=== PATIENT | female | born 1975 | race Caucasian/White ===

== ENCOUNTER 2017-12-31 16:46 | Inpatient (IN) | payer OTHER ==
[~2017-12-31] VITALS: Ht 170.2 cm; Wt 73.6 kg
[~2017-12-31 16:46] MED LIST: CLEAR EYES REDN30 M1 BOTH EYES; DAILY VITAMIN1 EAC8 PO; ESSENTIAL WOMA1 EAC1 PO; FOLIC ACID1 MG PO; LEVAQUIN750 MG PO; NORCO 5/3251 TABLET PO; PERCOCET 5/31 TABLET PO; PROVERA,CYCRIN10 MG PO; SYNTHROID75 MCG PO; ZOFRAN ODT4 MG PO
[2017-12-31 17:42] LABS: BASOPHIL (%) 0.1 % (0-1); EOSINOPHIL (%) 0.2 % (0-5); HEMATOCRIT 25.5 % (36.0-46.0); HEMOGLOBIN 8.8 G/DL (11.9-15.5); IMMATURE GRANULOCYTE (%) 1.1 % (0.0-0.7); LYMPHOCYTE (%) 10.6 % (15-42); LYMPHOCYTE COUNT 1.5 K/uL (1.0-2.8); MCH 37.9 PG (29.0-34.0); MCHC 34.5 G/DL (30.0-36.0); MCV 109.9 FL (83-99); MONOCYTE (%) 4.7 % (3-12); MONOCYTE COUNT 0.7 K/uL (0-0.8); NEUTROPHIL (%) 83.3 % (45-76); NEUTROPHIL COUNT 11.8 K/uL (1.8-6.4); PLATELET COUNT 167 K/uL (156-360); RBC DIS.WIDTH-CV 18.7 % (11.8-14.6); RBC DIS.WIDTH-SD 74.4 % (39-53); RED BLOOD COUNT 2.32 M/uL (3.80-5.20); WHITE BLOOD COUNT 14.1 K/uL (4.1-10.2)
[2017-12-31 17:48] LABS: INTER. NORMALIZED RATIO 1.8
[2017-12-31 18:11] LABS: ALBUMIN 2.3 G/DL (3.2-4.8); CHLORIDE 82 MEQ/L (99-109); DIRECT BILIRUBIN 5.5 mg/dL (0.0-0.3); POTASSIUM 2.6 MEQ/L (3.7-5.4); SODIUM 124 MEQ/L (136-147)
[2017-12-31 18:21] LABS: QUANTITATIVE HCG < 4.0 MIU/ML
[2017-12-31 18:42] LABS: ALKALINE PHOSPHATASE 486 IU/L (3-129); ALT (GPT) 18 IU/L (3-49); AST (GOT) 94 IU/L (2-34); CREATININE 1.4 MG/DL (0.6-1.3); GFR ESTIMATE (CALCULATED) 44 mL/min/; GLUCOSE 127 mg/dL (70-99); LIPASE 19 U/L (1.0-51.0); SERUM ETHYL ALCOHOL < 10 mg/dL; TOTAL PROTEIN 6.8 G/DL (6.4-8.3); UREA NITROGEN (BUN) 7 mg/dL (9-23)
[2017-12-31 19:32] LABS: MAGNESIUM 1.8 mg/dl (1.3-2.7); PHOSPHORUS 3.5 mg/dL (2.5-4.9)
[2017-12-31] MEDS ORDERED: SYNTHROID125 MCG PO (21:22)
[2017-12-31] MEDS ORDERED: [UNRECOGNIZED DRUG - OTHER] PO (21:22)
[2017-12-31] MEDS ORDERED: OMEPRAZOLE20 MG PO (21:23)
[2017-12-31] MEDS ORDERED: NOVOLOG MI100 UNIT/3 SC ×2 (21:23)
[2017-12-31] MEDS ORDERED: METOCLOPRAMIDE10 MG PO (21:25)
[2017-12-31 23:14] LABS: TYPE OF FLUID PERITONEAL
[2017-12-31 23:28] LABS: APPEARANCE CLEAR-YELLOW; BODY FLUID RBC'S < 1000 /MM^3 (0-100); BODY FLUID WBC'S 55 /MM^3 (0-500)
[2017-12-31 23:39] LABS: HEMATOCRIT 20.6 % (36.0-46.0); HEMOGLOBIN 7.2 G/DL (11.9-15.5); MCH 38.7 PG (29.0-34.0); MCV 110.8 FL (83-99); PLATELET COUNT 136 K/uL (156-360); RBC DIS.WIDTH-CV 18.8 % (11.8-14.6); RBC DIS.WIDTH-SD 75.9 % (39-53); RED BLOOD COUNT 1.86 M/uL (3.80-5.20); WHITE BLOOD COUNT 12.5 K/uL (4.1-10.2)
[2017-12-31 23:58] LABS: BODY FLUID GLUCOSE 95 MG/DL; BODY FLUID LDH 34 IU/L; BODY FLUID PROTEIN < 3.0 G/DL
[2018-01-01 00:15] LABS: BODY FLUID EOSINOPHILS 0 % (0-25); MONONUCLEAR WBC'S 67 %; POLYNUCLEAR WBC'S 33 % (0-25)
[2018-01-01 01:11] VITALS: BP 100/55
[2018-01-01 07:03] LABS: ALBUMIN 2.1 G/DL (3.2-4.8); ALKALINE PHOSPHATASE 381 IU/L (3-129); ALT (GPT) 16 IU/L (3-49); AST (GOT) 81 IU/L (2-34); CHLORIDE 89 MEQ/L (99-109); CREATININE 1.2 MG/DL (0.6-1.3); DIRECT BILIRUBIN 4.7 mg/dL (0.0-0.3); GFR ESTIMATE (CALCULATED) 52 mL/min/; GLUCOSE 96 mg/dL (70-99); MAGNESIUM 1.9 mg/dl (1.3-2.7); PHOSPHORUS 3.3 mg/dL (2.5-4.9); POTASSIUM 2.6 MEQ/L (3.7-5.4); SODIUM 128 MEQ/L (136-147); TOTAL BILIRUBIN 7.2 MG/DL (0.0-1.0); TOTAL PROTEIN 5.8 G/DL (6.4-8.3); UREA NITROGEN (BUN) 7 mg/dL (9-23)
[2018-01-01 07:50] VITALS: BP 91/55
[2018-01-01 10:13] LABS: IRON 27 MCG/DL (35-150)
[2018-01-01 10:46] LABS: FERRITIN 26 NG/ML (10-291)
[2018-01-01 10:54] LABS: FOLIC ACID (FOLATE) 6.1 NG/ML (5.0-22.0)
[2018-01-01 13:44] LABS: BASOPHIL (%) 0.2 % (0-1); EOSINOPHIL (%) 0.1 % (0-5); HEMATOCRIT 25.1 % (36.0-46.0); HEMOGLOBIN 8.4 G/DL (11.9-15.5); IMMATURE GRANULOCYTE (%) 0.8 % (0.0-0.7); LYMPHOCYTE (%) 12.8 % (15-42); LYMPHOCYTE COUNT 1.5 K/uL (1.0-2.8); MCHC 33.5 G/DL (30.0-36.0); MCV 113.6 FL (83-99); MONOCYTE (%) 5.2 % (3-12); MONOCYTE COUNT 0.6 K/uL (0-0.8); NEUTROPHIL (%) 80.9 % (45-76); NEUTROPHIL COUNT 9.3 K/uL (1.8-6.4); PLATELET COUNT 149 K/uL (156-360); RBC DIS.WIDTH-CV 19.2 % (11.8-14.6); RBC DIS.WIDTH-SD 78.3 % (39-53); RED BLOOD COUNT 2.21 M/uL (3.80-5.20); WHITE BLOOD COUNT 11.5 K/uL (4.1-10.2)
[2018-01-01 13:57] VITALS: BP 94/56
[2018-01-01 14:25] LABS: IRON 38 MCG/DL (35-150); TRANSFERRIN (TIBC) 164.1 mg/dL (215-380); TRANSFERRIN SATUR. 23 % (20-55)
[2018-01-01 14:28] LABS: HEPATITIS B SURFACE ANTIGEN Nonreactive; HEPATITIS C ANTIBODY Nonreactive
[2018-01-01 14:29] LABS: ANTI-HEPATITIS A VIRUS (IGM) Nonreactive
[2018-01-01 14:30] LABS: ANTI-HEPATITIS B CORE (IGM) Nonreactive
[2018-01-01 16:33] VITALS: BP 107/55
[2018-01-01 22:48] VITALS: BP 95/54
[2018-01-02 06:04] LABS: HEMATOCRIT 22.5 % (36.0-46.0); HEMOGLOBIN 7.4 G/DL (11.9-15.5); MCH 37.9 PG (29.0-34.0); MCHC 32.9 G/DL (30.0-36.0); MCV 115.4 FL (83-99); PLATELET COUNT 128 K/uL (156-360); RBC DIS.WIDTH-SD 79.6 % (39-53); RED BLOOD COUNT 1.95 M/uL (3.80-5.20); WHITE BLOOD COUNT 9.6 K/uL (4.1-10.2)
[2018-01-02 06:27] LABS: ALBUMIN 2.1 G/DL (3.2-4.8); ALKALINE PHOSPHATASE 376 IU/L (3-129); ALT (GPT) 17 IU/L (3-49); AST (GOT) 86 IU/L (2-34); CHLORIDE 94 MEQ/L (99-109); DIRECT BILIRUBIN 5.1 mg/dL (0.0-0.3); GFR ESTIMATE (CALCULATED) > 59 mL/min/; GLUCOSE 104 mg/dL (70-99); SODIUM 130 MEQ/L (136-147); TOTAL BILIRUBIN 7.7 MG/DL (0.0-1.0); TOTAL PROTEIN 5.8 G/DL (6.4-8.3); UREA NITROGEN (BUN) 6 mg/dL (9-23)
[2018-01-02 06:29] LABS: POTASSIUM 3.4 MEQ/L (3.7-5.4)
[2018-01-02 07:43] VITALS: BP 97/54
[2018-01-02 10:26] LABS: TYPE OF FLUID PARACENTESIS
[2018-01-02 11:09] LABS: BODY FLUID PROTEIN < 3.0 G/DL
[2018-01-02 11:39] LABS: APPEARANCE YELLOW-CLEAR; BODY FLUID RBC'S < 1000 /MM^3 (0-100); BODY FLUID WBC'S 98 /MM^3 (0-500)
[2018-01-02 13:27] LABS: BODY FLUID EOSINOPHILS 0 % (0-25); MONONUCLEAR WBC'S 48 %; POLYNUCLEAR WBC'S 52 % (0-25)
[2018-01-02 16:00] VITALS: BP 94/52
[2018-01-02 19:44] LABS: HEMATOCRIT 23.8 % (36.0-46.0); HEMOGLOBIN 7.8 G/DL (11.9-15.5); MCV 116.1 FL (83-99)
[2018-01-02 20:24] VITALS: BP 100/51
[2018-01-02 23:24] VITALS: BP 87/58
[2018-01-03 00:06] LABS: BODY FLUID PH 8.1 (())
[2018-01-03 00:35] VITALS: BP 92/52
[2018-01-03 06:41] LABS: BASOPHIL (%) 0.1 % (0-1); EOSINOPHIL (%) 0.3 % (0-5); HEMATOCRIT 23.3 % (36.0-46.0); HEMOGLOBIN 7.7 G/DL (11.9-15.5); IMMATURE GRANULOCYTE (%) 0.9 % (0.0-0.7); LYMPHOCYTE (%) 17.4 % (15-42); LYMPHOCYTE COUNT 1.4 K/uL (1.0-2.8); MCH 38.1 PG (29.0-34.0); MCV 115.3 FL (83-99); MONOCYTE (%) 4.9 % (3-12); MONOCYTE COUNT 0.4 K/uL (0-0.8); NEUTROPHIL (%) 76.4 % (45-76); NEUTROPHIL COUNT 5.9 K/uL (1.8-6.4); PLATELET COUNT 129 K/uL (156-360); RBC DIS.WIDTH-CV 18.8 % (11.8-14.6); RBC DIS.WIDTH-SD 79.1 % (39-53); RED BLOOD COUNT 2.02 M/uL (3.80-5.20); WHITE BLOOD COUNT 7.8 K/uL (4.1-10.2)
[2018-01-03 06:47] LABS: INTER. NORMALIZED RATIO 1.7
[2018-01-03 07:02] LABS: ALBUMIN 2.4 G/DL (3.2-4.8); ALKALINE PHOSPHATASE 337 IU/L (3-129); ALT (GPT) 16 IU/L (3-49); AST (GOT) 89 IU/L (2-34); CHLORIDE 94 MEQ/L (99-109); GFR ESTIMATE (CALCULATED) > 59 mL/min/; GLUCOSE 107 mg/dL (70-99); POTASSIUM 3.7 MEQ/L (3.7-5.4); SODIUM 129 MEQ/L (136-147); TOTAL BILIRUBIN 6.7 MG/DL (0.0-1.0); TOTAL PROTEIN 5.7 G/DL (6.4-8.3); UREA NITROGEN (BUN) 6 mg/dL (9-23)
[2018-01-03 07:30] VITALS: BP 87/51
[2018-01-03 15:33] VITALS: BP 83/53
[2018-01-03 20:13] LABS: HEMATOCRIT 23.8 % (36.0-46.0); HEMOGLOBIN 7.7 G/DL (11.9-15.5); MCV 115.5 FL (83-99)
[2018-01-04 03:47] LABS: STOOL OCCULT BLD 1ST SPECIMEN NEGATIVE
[2018-01-04 05:41] LABS: HEMATOCRIT 23.4 % (36.0-46.0); HEMOGLOBIN 7.7 G/DL (11.9-15.5); MCH 37.7 PG (29.0-34.0); MCHC 32.9 G/DL (30.0-36.0); MCV 114.7 FL (83-99); PLATELET COUNT 135 K/uL (156-360); RBC DIS.WIDTH-CV 18.6 % (11.8-14.6); RBC DIS.WIDTH-SD 77.6 % (39-53); RED BLOOD COUNT 2.04 M/uL (3.80-5.20); WHITE BLOOD COUNT 8.4 K/uL (4.1-10.2)
[2018-01-04 06:06] LABS: ALBUMIN 2.3 G/DL (3.2-4.8); ALKALINE PHOSPHATASE 360 IU/L (3-129); ALT (GPT) 17 IU/L (3-49); AST (GOT) 96 IU/L (2-34); CHLORIDE 94 MEQ/L (99-109); GFR ESTIMATE (CALCULATED) > 59 mL/min/; GLUCOSE 130 mg/dL (70-99); POTASSIUM 3.5 MEQ/L (3.7-5.4); SODIUM 131 MEQ/L (136-147); TOTAL BILIRUBIN 7.5 MG/DL (0.0-1.0); TOTAL PROTEIN 5.5 G/DL (6.4-8.3); UREA NITROGEN (BUN) 7 mg/dL (9-23)
[2018-01-04 07:39] VITALS: BP 88/55
[2018-01-04 11:29] VITALS: BP 83/52
[2018-01-04 16:11] VITALS: BP 89/54
[2018-01-04 20:16] LABS: HEMATOCRIT 23.9 % (36.0-46.0); HEMOGLOBIN 8.1 G/DL (11.9-15.5); MCV 113.8 FL (83-99)
[2018-01-04 23:10] VITALS: BP 98/60
[2018-01-05] VITALS (9 sets, daily range): BP systolic 89–106; BP diastolic 48–72
[2018-01-05 06:28] LABS: HEMOGLOBIN 7.1 G/DL (11.9-15.5); MCH 38.6 PG (29.0-34.0); MCHC 33.8 G/DL (30.0-36.0); MCV 114.1 FL (83-99); PLATELET COUNT 141 K/uL (156-360); RBC DIS.WIDTH-CV 19.1 % (11.8-14.6); RBC DIS.WIDTH-SD 78.5 % (39-53); RED BLOOD COUNT 1.84 M/uL (3.80-5.20); WHITE BLOOD COUNT 8.8 K/uL (4.1-10.2)
[2018-01-05 07:02] LABS: ALBUMIN 2.1 G/DL (3.2-4.8); ALKALINE PHOSPHATASE 333 IU/L (3-129); ALT (GPT) 17 IU/L (3-49); AST (GOT) 90 IU/L (2-34); CHLORIDE 97 MEQ/L (99-109); CREATININE 0.9 MG/DL (0.6-1.3); GFR ESTIMATE (CALCULATED) > 59 mL/min/; GLUCOSE 104 mg/dL (70-99); SODIUM 131 MEQ/L (136-147); TOTAL BILIRUBIN 7.6 MG/DL (0.0-1.0); TOTAL PROTEIN 5.2 G/DL (6.4-8.3); UREA NITROGEN (BUN) 7 mg/dL (9-23)
[2018-01-05 08:48] LABS: HEMATOCRIT 25.8 % (36.0-46.0); HEMOGLOBIN 8.4 G/DL (11.9-15.5); MCV 114.7 FL (83-99)
[2018-01-05 18:36] LABS: HEMATOCRIT 25.6 % (36.0-46.0); HEMOGLOBIN 8.6 G/DL (11.9-15.5); MCH 35.7 PG (29.0-34.0); MCHC 33.6 G/DL (30.0-36.0); MCV 106.2 FL (83-99); PLATELET COUNT 155 K/uL (156-360); RBC DIS.WIDTH-CV 22.5 % (11.8-14.6); RED BLOOD COUNT 2.41 M/uL (3.80-5.20); WHITE BLOOD COUNT 10.3 K/uL (4.1-10.2)
[2018-01-06 06:24] LABS: HEMATOCRIT 25.1 % (36.0-46.0); HEMOGLOBIN 8.6 G/DL (11.9-15.5); MCH 35.8 PG (29.0-34.0); MCHC 34.3 G/DL (30.0-36.0); MCV 104.6 FL (83-99); NRBC (%) 0.2 /100 WBC (0-0); PLATELET COUNT 156 K/uL (156-360); RBC DIS.WIDTH-CV 22.9 % (11.8-14.6); RBC DIS.WIDTH-SD 85.1 % (39-53); WHITE BLOOD COUNT 10.4 K/uL (4.1-10.2)
[2018-01-06 06:57] LABS: ALKALINE PHOSPHATASE 330 IU/L (3-129); ALT (GPT) 17 IU/L (3-49); AST (GOT) 90 IU/L (2-34); CHLORIDE 96 MEQ/L (99-109); CREATININE 0.9 MG/DL (0.6-1.3); GFR ESTIMATE (CALCULATED) > 59 mL/min/; GLUCOSE 97 mg/dL (70-99); POTASSIUM 3.7 MEQ/L (3.7-5.4); SODIUM 131 MEQ/L (136-147); TOTAL PROTEIN 5.3 G/DL (6.4-8.3); UREA NITROGEN (BUN) 7 mg/dL (9-23)
[2018-01-06 07:00] LABS: TOTAL BILIRUBIN 9.9 MG/DL (0.0-1.0)
[2018-01-06 07:46] VITALS: BP 98/38
[2018-01-06 09:24] LABS: INTER. NORMALIZED RATIO 1.6
[2018-01-06 09:27] LABS: PTT 35.5 SEC (25-37)
[2018-01-06 16:16] VITALS: BP 106/70
[2018-01-06 20:02] LABS: HEMATOCRIT 26.2 % (36.0-46.0); MCV 105.6 FL (83-99)
[2018-01-06 22:52] VITALS: BP 96/54
[2018-01-07 06:27] LABS: HEMATOCRIT 25.1 % (36.0-46.0); HEMOGLOBIN 8.4 G/DL (11.9-15.5); MCH 35.1 PG (29.0-34.0); MCHC 33.5 G/DL (30.0-36.0); NRBC (%) 0.2 /100 WBC (0-0); PLATELET COUNT 159 K/uL (156-360); RBC DIS.WIDTH-CV 22.2 % (11.8-14.6); RBC DIS.WIDTH-SD 82.4 % (39-53); RED BLOOD COUNT 2.39 M/uL (3.80-5.20); WHITE BLOOD COUNT 9.4 K/uL (4.1-10.2)
[2018-01-07 07:06] LABS: ALBUMIN 2.1 G/DL (3.2-4.8); ALKALINE PHOSPHATASE 329 IU/L (3-129); ALT (GPT) 19 IU/L (3-49); AST (GOT) 86 IU/L (2-34); CHLORIDE 96 MEQ/L (99-109); CREATININE 0.9 MG/DL (0.6-1.3); GFR ESTIMATE (CALCULATED) > 59 mL/min/; GLUCOSE 105 mg/dL (70-99); POTASSIUM 3.4 MEQ/L (3.7-5.4); SODIUM 130 MEQ/L (136-147); TOTAL BILIRUBIN 8.9 MG/DL (0.0-1.0); UREA NITROGEN (BUN) 7 mg/dL (9-23)
[2018-01-07 07:30] VITALS: BP 96/58
[2018-01-07 18:00] VITALS: BP 100/59
[2018-01-07 19:46] LABS: HEMATOCRIT 28.9 % (36.0-46.0); HEMOGLOBIN 9.5 G/DL (11.9-15.5)
[2018-01-08 06:31] LABS: HEMOGLOBIN 9.9 G/DL (11.9-15.5); MCH 36.8 PG (29.0-34.0); MCHC 34.1 G/DL (30.0-36.0); MCV 107.8 FL (83-99); PLATELET COUNT 177 K/uL (156-360); RBC DIS.WIDTH-CV 21.8 % (11.8-14.6); RBC DIS.WIDTH-SD 83.7 % (39-53); RED BLOOD COUNT 2.69 M/uL (3.80-5.20); WHITE BLOOD COUNT 10.6 K/uL (4.1-10.2)
[2018-01-08 06:37] LABS: INTER. NORMALIZED RATIO 1.6
[2018-01-08 06:58] LABS: ALBUMIN 2.3 G/DL (3.2-4.8); ALKALINE PHOSPHATASE 354 IU/L (3-129); ALT (GPT) 21 IU/L (3-49); AST (GOT) 95 IU/L (2-34); CHLORIDE 95 MEQ/L (99-109); GFR ESTIMATE (CALCULATED) > 59 mL/min/; GLUCOSE 114 mg/dL (70-99); SODIUM 131 MEQ/L (136-147); TOTAL BILIRUBIN 9.2 MG/DL (0.0-1.0); TOTAL PROTEIN 6.6 G/DL (6.4-8.3); UREA NITROGEN (BUN) 8 mg/dL (9-23)
[2018-01-08 07:02] LABS: BASOPHIL (%) 0.5 % (0-1); BASOPHIL COUNT 0.1 K/uL (0-0.1); EOSINOPHIL (%) 0.2 % (0-5); IMMATURE GRANULOCYTE (%) 2.5 % (0.0-0.7); LYMPHOCYTE (%) 16.7 % (15-42); LYMPHOCYTE COUNT 1.8 K/uL (1.0-2.8); MONOCYTE (%) 8.9 % (3-12); MONOCYTE COUNT 0.9 K/uL (0-0.8); NEUTROPHIL (%) 71.2 % (45-76); NEUTROPHIL COUNT 7.6 K/uL (1.8-6.4)
[2018-01-08 07:11] LABS: POTASSIUM 4.2 MEQ/L (3.7-5.4)
[2018-01-08 07:25] VITALS: BP 87/49
[2018-01-08 08:39] LABS: HEMOGLOBIN 9.2 G/DL (11.9-15.5); MCV 106.5 FL (83-99)
[2018-01-08 10:11] VITALS: BP 88/54
[2018-01-08 16:34] VITALS: BP 90/56
[2018-01-08 20:11] LABS: HEMATOCRIT 29.7 % (36.0-46.0); HEMOGLOBIN 9.7 G/DL (11.9-15.5); MCV 107.6 FL (83-99)
[2018-01-09 00:12] VITALS: BP 111/63
[2018-01-09 07:03] LABS: HEMATOCRIT 29.5 % (36.0-46.0); HEMOGLOBIN 9.9 G/DL (11.9-15.5); MCH 35.9 PG (29.0-34.0); MCHC 33.6 G/DL (30.0-36.0); MCV 106.9 FL (83-99); PLATELET COUNT 183 K/uL (156-360); RBC DIS.WIDTH-CV 20.7 % (11.8-14.6); RBC DIS.WIDTH-SD 81.3 % (39-53); RED BLOOD COUNT 2.76 M/uL (3.80-5.20); WHITE BLOOD COUNT 10.2 K/uL (4.1-10.2)
[2018-01-09 07:31] LABS: ALBUMIN 2.4 G/DL (3.2-4.8); CHLORIDE 95 MEQ/L (99-109); CREATININE 0.8 MG/DL (0.6-1.3); GFR ESTIMATE (CALCULATED) > 59 mL/min/; GLUCOSE 166 mg/dL (70-99); PHOSPHORUS 3.6 mg/dL (2.5-4.9); POTASSIUM 3.8 MEQ/L (3.7-5.4); SODIUM 132 MEQ/L (136-147); UREA NITROGEN (BUN) 8 mg/dL (9-23)
[2018-01-09 07:43] VITALS: BP 113/65
[2018-01-09 16:32] VITALS: BP 110/71
[2018-01-09 20:08] LABS: HEMOGLOBIN 10.1 G/DL (11.9-15.5); MCV 108.7 FL (83-99)
[2018-01-09 23:01] VITALS: BP 112/68
[2018-01-10 07:00] VITALS: BP 93/54
[2018-01-10 08:34] LABS: HEMATOCRIT 28.8 % (36.0-46.0); HEMOGLOBIN 9.7 G/DL (11.9-15.5); MCV 109.5 FL (83-99)
[2018-01-10] MEDS ORDERED: TRAMADOL HCL50 MG PO (09:56)
[2018-01-10 11:56] LABS: CHLORIDE 98 MEQ/L (99-109); CREATININE 0.9 MG/DL (0.6-1.3); GFR ESTIMATE (CALCULATED) > 59 mL/min/; GLUCOSE 132 mg/dL (70-99); POTASSIUM 3.8 MEQ/L (3.7-5.4); SODIUM 133 MEQ/L (136-147); UREA NITROGEN (BUN) 12 mg/dL (9-23)
[2018-01-10 14:59] VITALS: BP 108/61
[2018-01-10 15:48] LABS: APPEARANCE CLEAR ((CLEAR)); BILIRUBIN NEGATIVE; BLOOD MODERATE; COLOR YELLOW ((YELLOW)); GLUCOSE (STRIP) NEGATIVE; KETONES NEGATIVE; LEUKOCYTES SMALL; NITRITE NEGATIVE; PROTEIN (STRIP) NEGATIVE; SPECIFIC GRAVITY 1.003 (1.000-1.030); UROBILINOGEN 0.2 MG/DL (0.2-1.0)
[2018-01-10 16:22] LABS: BACTERIA NONE SEEN /HPF; EPITHELIAL CELLS RARE /HPF; HYALINE CASTS 0-5 /LPF; MUCUS NONE SEEN /LPF; RED BLOOD CELLS 0-5 /HPF (0-5); UCUL ADDED? YES
[2018-01-10 19:46] LABS: HEMATOCRIT 26.5 % (36.0-46.0); HEMOGLOBIN 8.8 G/DL (11.9-15.5); MCV 109.1 FL (83-99)
[2018-01-10 23:25] VITALS: BP 115/66
[2018-01-11 07:04] VITALS: BP 107/58
[2018-01-11 09:03] LABS: BASOPHIL (%) 0.1 % (0-1); EOSINOPHIL (%) 0.1 % (0-5); HEMATOCRIT 30.7 % (36.0-46.0); HEMOGLOBIN 9.8 G/DL (11.9-15.5); IMMATURE GRANULOCYTE (%) 1.3 % (0.0-0.7); LYMPHOCYTE (%) 14.1 % (15-42); LYMPHOCYTE COUNT 1.6 K/uL (1.0-2.8); MCH 35.6 PG (29.0-34.0); MCHC 31.9 G/DL (30.0-36.0); MCV 111.6 FL (83-99); MONOCYTE (%) 5.9 % (3-12); MONOCYTE COUNT 0.7 K/uL (0-0.8); NEUTROPHIL (%) 78.5 % (45-76); NEUTROPHIL COUNT 8.8 K/uL (1.8-6.4); PLATELET COUNT 189 K/uL (156-360); RBC DIS.WIDTH-CV 20.2 % (11.8-14.6); RBC DIS.WIDTH-SD 82.1 % (39-53); RED BLOOD COUNT 2.75 M/uL (3.80-5.20); WHITE BLOOD COUNT 11.3 K/uL (4.1-10.2)
[2018-01-11 09:28] LABS: ALBUMIN 2.6 G/DL (3.2-4.8); ALKALINE PHOSPHATASE 317 IU/L (3-129); ALT (GPT) 25 IU/L (3-49); AST (GOT) 74 IU/L (2-34); CHLORIDE 100 MEQ/L (99-109); CREATININE 0.9 MG/DL (0.6-1.3); GFR ESTIMATE (CALCULATED) > 59 mL/min/; GLUCOSE 146 mg/dL (70-99); POTASSIUM 3.6 MEQ/L (3.7-5.4); SODIUM 134 MEQ/L (136-147); TOTAL PROTEIN 6.6 G/DL (6.4-8.3); UREA NITROGEN (BUN) 12 mg/dL (9-23)
[2018-01-11 09:40] LABS: TOTAL BILIRUBIN 6.9 MG/DL (0.0-1.0)
[2018-01-11 16:00] VITALS: BP 103/65
[2018-01-11 20:10] LABS: HEMATOCRIT 30.7 % (36.0-46.0); HEMOGLOBIN 9.8 G/DL (11.9-15.5)
[2018-01-12 07:06] VITALS: BP 121/73
[2018-01-12 07:09] LABS: HEMATOCRIT 31.5 % (36.0-46.0); HEMOGLOBIN 10.2 G/DL (11.9-15.5); MCV 110.1 FL (83-99)
[2018-01-12] MEDS ORDERED: FERROUS SULFAT325 MG PO (11:25)
[2018-01-12] MEDS ORDERED: Chronulac,Cephulac,E PO (11:25)
[2018-01-12] MEDS ORDERED: SPIRONOLACTONE50 MG PO (11:25)
[2018-01-12] MEDS ORDERED: MIDODRINE HCL5 MG PO (11:25)
[2018-01-12] MEDS ORDERED: PREDNISONE20 MG PO (11:25)
[2018-01-12] MEDS ORDERED: FUROSEMIDE20 MG PO (11:25)
[2018-01-12] MEDS ORDERED: MIRTAZAPINE30 MG PO (11:25)
[2018-01-12] MEDS ORDERED: NOVOLOG 10100 UNITS/ SC (11:25)
[2018-01-12 15:54] VITALS: BP 98/60
== END 2018-01-12 17:21 | disposition home or self-care (01) | DRG 433 ==
LOC: EME 16:46 → 5EAST 22:48 → EDOF 22:48 → 5EAST 22:48 → ENRESERV 22:50 → EDOF 01-01 00:49 → 5EAST 01-01 00:50
PROVIDERS: Emergency Medicine; Hospitalist; Internal Medicine Gastroenterology; Physician Assistant; Specialist
PROC: 0W9G3ZZ Drainage of Peritoneal Cavity, Percutaneous Approach (ICD-10-PCS; principal; 2017-12-31)
PROC: 0W9G3ZZ Drainage of Peritoneal Cavity, Percutaneous Approach (ICD-10-PCS; 2018-01-02)
PROC: 30233N1 Transfusion of Nonautologous Red Blood Cells into Peripheral Vein, Percutaneous Approach (ICD-10-PCS; 2018-01-05)
PROC: 0W9G3ZZ Drainage of Peritoneal Cavity, Percutaneous Approach (ICD-10-PCS; 2018-01-07)
PROC: 0W9G3ZZ Drainage of Peritoneal Cavity, Percutaneous Approach (ICD-10-PCS; 2018-01-10)
PROC: 0W9G3ZZ Drainage of Peritoneal Cavity, Percutaneous Approach (ICD-10-PCS; 2018-01-12)
DX: K70.11 Alcoholic hepatitis with ascites (principal); N17.9 Acute kidney failure, unspecified; E87.1 Hypo-osmolality and hyponatremia; D63.8 Anemia in other chronic diseases classified elsewhere; D69.6 Thrombocytopenia, unspecified; E87.6 Hypokalemia; E88.09 Other disorders of plasma-protein metabolism, not elsewhere classified; E03.9 Hypothyroidism, unspecified; I10 Essential (primary) hypertension; K21.9 Gastro-esophageal reflux disease without esophagitis; E11.43 Type 2 diabetes mellitus with diabetic autonomic (poly)neuropathy; K31.84 Gastroparesis; F10.20 Alcohol dependence, uncomplicated; F32.9 Major depressive disorder, single episode, unspecified; F41.9 Anxiety disorder, unspecified; G47.00 Insomnia, unspecified; I95.9 Hypotension, unspecified; D68.9 Coagulation defect, unspecified; F17.210 Nicotine dependence, cigarettes, uncomplicated; Z79.4 Long term (current) use of insulin
CPT/HCPCS: 49083; 74177; 76705; 78227; 80048; 80053; 80069; 80074; 80076; 81003; 82105 90; 82140; 82248; 82272; 82390; 82607; 82728; 82746; 82945; 82948; 83540; 83605; 83615 91; 83690; 83735; 83986 90; 84100; 84155 90; 84157; 84466; 84702; 85014; 85018; 85025; 85027; 85610; 85730; 86038; 86256 90; 86850; 86900; 86901; 86920; 87040; 87070; 87075; 87086; 87205; 89051; 93005; 99281; 99283; A9537; G0480; J0696; J1815; J2060; J2270; J2405; J2543; J2805; J3010; J3475; J3480; J7030; J7040; J7512; P9016; P9047

== ENCOUNTER → 2018-02-07 | Outpatient (CLI) | payer OTHER ==
[~2018-02-07] MED LIST changes: +Chronulac,Cephulac,E PO; +FERROUS SULFAT325 MG PO; +FUROSEMIDE20 MG PO; +METOCLOPRAMIDE10 MG PO; +MIDODRINE HCL5 MG PO; +MIRTAZAPINE30 MG PO; +NOVOLOG 10100 UNITS/ SC; +NOVOLOG MI100 UNIT/3 SC; +OMEPRAZOLE20 MG PO; +PREDNISONE20 MG PO; +SPIRONOLACTONE50 MG PO; +SYNTHROID125 MCG PO; +TRAMADOL HCL50 MG PO; +[UNRECOGNIZED DRUG - OTHER] PO
== END | disposition home or self-care (01) ==
LOC: RAD 13:16
PROC: 0W9G3ZZ Drainage of Peritoneal Cavity, Percutaneous Approach (ICD-10-PCS; principal; 2018-02-07)
DX: K70.31 Alcoholic cirrhosis of liver with ascites (principal)
CPT/HCPCS: 49083

== ENCOUNTER → 2018-02-22 | Outpatient (CLI) | payer OTHER | END | disposition home or self-care (01) | LOC: RAD 13:13 | PROC: 0W9G3ZZ Drainage of Peritoneal Cavity, Percutaneous Approach (ICD-10-PCS; principal; 2018-02-22) | DX: R18.8 Other ascites (principal); K70.10 Alcoholic hepatitis without ascites | CPT/HCPCS: 49083 ==

== ENCOUNTER → 2018-03-08 | Outpatient (CLI) | payer OTHER | END | disposition home or self-care (01) | LOC: RAD 13:07 | PROC: 0W9G3ZZ Drainage of Peritoneal Cavity, Percutaneous Approach (ICD-10-PCS; principal; 2018-03-08) | DX: K70.11 Alcoholic hepatitis with ascites (principal) | CPT/HCPCS: 49083 ==

== ENCOUNTER → 2018-03-15 | Outpatient (CLI) | payer OTHER | END | disposition home or self-care (01) | LOC: RAD 13:22 | PROC: 0W9G3ZZ Drainage of Peritoneal Cavity, Percutaneous Approach (ICD-10-PCS; principal; 2018-03-15) | DX: K70.11 Alcoholic hepatitis with ascites (principal) | CPT/HCPCS: 49083 ==

== ENCOUNTER → 2018-03-22 | Outpatient (CLI) | payer OTHER ==
[~2018-03-22] MED LIST changes: +REMERON15 M2 PO
== END | disposition home or self-care (01) ==
LOC: RAD 13:20
PROC: 0W9G3ZZ Drainage of Peritoneal Cavity, Percutaneous Approach (ICD-10-PCS; principal; 2018-03-22)
DX: K70.11 Alcoholic hepatitis with ascites (principal)
CPT/HCPCS: 49083

== ENCOUNTER → 2018-03-29 | Outpatient (CLI) | payer OTHER | END | disposition home or self-care (01) | LOC: RAD 13:25 | PROC: 0W9G3ZZ Drainage of Peritoneal Cavity, Percutaneous Approach (ICD-10-PCS; principal; 2018-03-29) | DX: K70.11 Alcoholic hepatitis with ascites (principal) | CPT/HCPCS: 49083 ==

== ENCOUNTER → 2018-04-05 | Outpatient (CLI) | payer OTHER | END | disposition home or self-care (01) | LOC: RAD 13:30 | PROC: 0W9G3ZZ Drainage of Peritoneal Cavity, Percutaneous Approach (ICD-10-PCS; principal; 2018-04-05) | DX: K70.11 Alcoholic hepatitis with ascites (principal) | CPT/HCPCS: 49083 ==

== ENCOUNTER → 2018-04-12 | Outpatient (CLI) | payer OTHER | END | disposition home or self-care (01) | LOC: RAD 13:27 | PROC: 0W9G3ZZ Drainage of Peritoneal Cavity, Percutaneous Approach (ICD-10-PCS; principal; 2018-04-12) | DX: K70.11 Alcoholic hepatitis with ascites (principal) | CPT/HCPCS: 49083 ==

== ENCOUNTER → 2018-04-19 | Outpatient (CLI) | payer OTHER ==
[~2018-04-19] MED LIST changes: +METOLAZONE5 MG PO
== END | disposition home or self-care (01) ==
LOC: RAD 13:18
PROC: 0W9G3ZZ Drainage of Peritoneal Cavity, Percutaneous Approach (ICD-10-PCS; principal; 2018-04-19)
DX: R18.8 Other ascites (principal); K70.10 Alcoholic hepatitis without ascites
CPT/HCPCS: 49083

== ENCOUNTER → 2018-04-26 | Outpatient (CLI) | payer OTHER | END | disposition home or self-care (01) | LOC: RAD 13:23 | PROC: 0W9G3ZZ Drainage of Peritoneal Cavity, Percutaneous Approach (ICD-10-PCS; principal; 2018-04-26) | DX: K70.11 Alcoholic hepatitis with ascites (principal) | CPT/HCPCS: 49083 ==

== ENCOUNTER → 2018-05-03 | Outpatient (CLI) | payer OTHER | END | disposition home or self-care (01) | LOC: RAD 13:21 | PROC: 0W9G3ZZ Drainage of Peritoneal Cavity, Percutaneous Approach (ICD-10-PCS; principal; 2018-05-03) | DX: K70.11 Alcoholic hepatitis with ascites (principal) | CPT/HCPCS: 49083 ==

== ENCOUNTER → 2018-05-17 | Outpatient (CLI) | payer OTHER | END | disposition home or self-care (01) | LOC: RAD 13:15 | PROC: 0W9G3ZZ Drainage of Peritoneal Cavity, Percutaneous Approach (ICD-10-PCS; principal; 2018-05-17) | DX: K70.11 Alcoholic hepatitis with ascites (principal) | CPT/HCPCS: 49083 ==

== ENCOUNTER → 2018-05-24 | Outpatient (CLI) | payer OTHER | END | disposition home or self-care (01) | LOC: RAD 13:16 | PROC: 0W9G3ZZ Drainage of Peritoneal Cavity, Percutaneous Approach (ICD-10-PCS; principal; 2018-05-24) | DX: K70.11 Alcoholic hepatitis with ascites (principal) | CPT/HCPCS: 49083 ==

== ENCOUNTER → 2018-05-31 | Outpatient (CLI) | payer OTHER | END | disposition home or self-care (01) | LOC: RAD 13:25 | PROC: 0W9G3ZZ Drainage of Peritoneal Cavity, Percutaneous Approach (ICD-10-PCS; principal; 2018-05-31) | DX: K70.11 Alcoholic hepatitis with ascites (principal) | CPT/HCPCS: 49083 ==

== ENCOUNTER → 2018-06-07 | Outpatient (CLI) | payer OTHER | END | disposition home or self-care (01) | LOC: RAD 13:17 | PROC: 0W9G3ZZ Drainage of Peritoneal Cavity, Percutaneous Approach (ICD-10-PCS; principal; 2018-06-07) | DX: K70.11 Alcoholic hepatitis with ascites (principal) | CPT/HCPCS: 49083; P9047 ==

== ENCOUNTER → 2018-06-14 | Outpatient (CLI) | payer OTHER ==
[~2018-06-14] MED LIST changes: +IBUPROFEN600 MG PO; +KEFLEX500 MG PO; +LIDODERM 5% P1 PATCH TD
== END | disposition home or self-care (01) ==
LOC: RAD 13:17
PROC: 0W9G3ZZ Drainage of Peritoneal Cavity, Percutaneous Approach (ICD-10-PCS; principal; 2018-06-14)
DX: K70.11 Alcoholic hepatitis with ascites (principal)
CPT/HCPCS: 49083; P9047

== ENCOUNTER 2018-06-17 21:47 | Emergency (ER) | payer OTHER ==
[~2018-06-17] VITALS: Ht 170.2 cm; Wt 71.0 kg
[~2018-06-17 21:47] MED LIST changes: -IBUPROFEN600 MG PO; -KEFLEX500 MG PO; -LIDODERM 5% P1 PATCH TD
[2018-06-17 23:01] LABS: BASOPHIL (%) 0.5 % (0-1); EOSINOPHIL (%) 1.4 % (0-5); EOSINOPHIL COUNT 0.1 K/uL (0-0.3); HEMATOCRIT 25.4 % (36.0-46.0); HEMOGLOBIN 8.8 G/DL (11.9-15.5); IMMATURE GRANULOCYTE (%) 0.5 % (0.0-0.7); LYMPHOCYTE (%) 20.4 % (15-42); LYMPHOCYTE COUNT 1.3 K/uL (1.0-2.8); MCH 31.9 PG (29.0-34.0); MCHC 34.6 G/DL (30.0-36.0); MONOCYTE (%) 5.5 % (3-12); MONOCYTE COUNT 0.4 K/uL (0-0.8); NEUTROPHIL (%) 71.7 % (45-76); NEUTROPHIL COUNT 4.7 K/uL (1.8-6.4); PLATELET COUNT 207 K/uL (156-360); RBC DIS.WIDTH-CV 14.4 % (11.8-14.6); RBC DIS.WIDTH-SD 48.1 % (39-53); RED BLOOD COUNT 2.76 M/uL (3.80-5.20); WHITE BLOOD COUNT 6.6 K/uL (4.1-10.2)
[2018-06-17 23:08] LABS: INTER. NORMALIZED RATIO 1.2
[2018-06-17 23:11] LABS: PTT 30.5 SEC (25-37)
[2018-06-17 23:18] LABS: ALBUMIN 2.9 g/dL (3.2-4.8); CHLORIDE 98 mEq/L (99-109); POTASSIUM 3.2 mEq/L (3.7-5.4); SODIUM 135 mEq/L (136-147)
[2018-06-17 23:20] LABS: GLUCOSE 158 mg/dL (70-99); TOTAL PROTEIN 6.7 g/dL (6.4-8.3)
[2018-06-17 23:21] LABS: TROP-I INTERPRETATION NEGATIVE; TROPONIN-I < 0.01 ng/mL (0.0-0.30)
[2018-06-17 23:22] LABS: TOTAL BILIRUBIN 0.6 mg/dL (0.0-1.0)
[2018-06-17 23:24] LABS: ALKALINE PHOSPHATASE 225 IU/L (3-129); CREATININE 1.6 mg/dL (0.6-1.3); GFR ESTIMATE (CALCULATED) 37 mL/min/
[2018-06-17 23:25] LABS: AST (GOT) 24 IU/L (2-34); UREA NITROGEN (BUN) 15 mg/dL (9-23)
[2018-06-17 23:26] LABS: DIRECT BILIRUBIN 0.3 mg/dL (0.0-0.3)
[2018-06-17 23:27] LABS: ALT (GPT) 9 IU/L (3-49); LIPASE 50 U/L (1.0-51.0)
[2018-06-18] MEDS ORDERED: IBUPROFEN600 MG PO (01:48)
[2018-06-18] MEDS ORDERED: KEFLEX500 MG PO (01:48)
[2018-06-18] MEDS ORDERED: LIDODERM 5% P1 PATCH TD (01:48)
[2018-06-18 02:37] VITALS: BP 109/72
== END 2018-06-18 02:38 | disposition home or self-care (01) ==
LOC: EME 21:47
PROVIDERS: Emergency Medicine
DX: G89.18 Other acute postprocedural pain (principal); L03.311 Cellulitis of abdominal wall; K72.90 Hepatic failure, unspecified without coma; E11.9 Type 2 diabetes mellitus without complications; E03.9 Hypothyroidism, unspecified; F32.9 Major depressive disorder, single episode, unspecified; K21.9 Gastro-esophageal reflux disease without esophagitis; F17.200 Nicotine dependence, unspecified, uncomplicated
CPT/HCPCS: 74176; 80048; 80076; 83605; 83690; 83880; 84484; 85025; 85610; 85730; 99281; 99284

== ENCOUNTER → 2018-06-21 | Outpatient (CLI) | payer OTHER ==
[~2018-06-21] MED LIST changes: +IBUPROFEN600 MG PO; +KEFLEX500 MG PO; +LIDODERM 5% P1 PATCH TD
== END | disposition home or self-care (01) ==
LOC: RAD 13:12
PROC: 0W9G3ZZ Drainage of Peritoneal Cavity, Percutaneous Approach (ICD-10-PCS; principal; 2018-06-21)
DX: K70.11 Alcoholic hepatitis with ascites (principal)
CPT/HCPCS: 49083; P9047

== ENCOUNTER → 2018-06-28 | Outpatient (CLI) | payer OTHER | END | disposition home or self-care (01) | LOC: RAD 13:17 | PROC: 0W9G3ZZ Drainage of Peritoneal Cavity, Percutaneous Approach (ICD-10-PCS; principal; 2018-06-28) | DX: K70.11 Alcoholic hepatitis with ascites (principal) | CPT/HCPCS: 49083; P9047 ==

== ENCOUNTER → 2018-07-05 | Outpatient (CLI) | payer OTHER | END | disposition home or self-care (01) | LOC: RAD 13:24 | PROC: 0WJG3ZZ Inspection of Peritoneal Cavity, Percutaneous Approach (ICD-10-PCS; principal; 2018-07-05) | DX: R18.8 Other ascites (principal); K70.10 Alcoholic hepatitis without ascites; Z53.09 Procedure and treatment not carried out because of other contraindication | CPT/HCPCS: 76705; P9047 ==